=== PATIENT | male | born 1955 | race Caucasian/White ===

== ENCOUNTER 2025-08-17 08:02 | Outpatient (CLI) | payer MEDICARE | END 2025-08-17 08:03 | disposition home or self-care (01) | LOC: CSHWCC 08:02 | PROVIDERS: ATTEND Nurse Practitioner Family | DX: S81.811D Laceration without foreign body, right lower leg, subsequent encounter (principal) | CPT/HCPCS: 11042 ==

== ENCOUNTER 2025-08-24 08:34 | Outpatient (CLI) | payer MEDICARE | END 2025-08-24 08:35 | disposition home or self-care (01) | LOC: CSHWCC 08:34 | PROVIDERS: ATTEND Nurse Practitioner Family | DX: L97.215 Non-pressure chronic ulcer of right calf with muscle involvement without evidence of necrosis (principal) | CPT/HCPCS: 99213; G0463 ==